=== PATIENT | female | born 1940 | race Caucasian/White ===

== ENCOUNTER 2018-11-30 20:04 | Emergency (ER) | payer MEDICARE ==
--- NOTE | 2018-11-30 20:28 | EDM.PDOC ---
ED HPI GENERAL MEDICAL PROBLEM - General Chief Complaint: Upper Extremity Injury/Pain Stated Complaint: FALL Time Seen by Provider: 11/30/18 20:10 Source of Information: Reports: Patient, Other (caregivers) History Limitations: Reports: Altered Mental Status (advanced dementia) - History of Present Illness INITIAL COMMENTS - FREE TEXT/NARRATIVE: Patient was walking up the street and her was following her in a golf cart. She was confused and started to run away from him and fell forward. With her dementia she can't tell me much but she denies pain with all elements of the exam except the left arm, that hurts. Treatments [employer] INTERN: Reports: IV/IO, Splint(s) - Related Data Allergies Allergy/AdvReac Type Severity Reaction Status Date / Time No Known Drug Allergies Allergy Cannot Verified 11/30/18 20:20 Remember Review of Systems - Review of Systems Review Of Systems: Unable To Obtain ED EXAM, GENERAL - Physical Exam Exam: See Below Exam Limited By: Altered Mental Status General Appearance: Alert, WD/WN, No Apparent Distress Eye Exam: Bilateral Eye: EOMI, Normal Inspection, PERRL Ears: Normal External Exam, Hearing Grossly Normal Nose: Normal Inspection, No Blood, Other (two small abrasions on the nose). No : Nasal Deformity Throat/Mouth: Normal Inspection, Normal Lips, Normal Voice, No Airway Compromise Head: Normocephalic Neck: Normal Inspection, Supple, Non-Tender, Full Range of Motion. No: Tender Lateral, Tender Midline Respiratory/Chest: No Respiratory Distress, Lungs Clear, Normal Breath Sounds, No Accessory Muscle Use, Chest Non-Tender Cardiovascular: Normal Peripheral Pulses, Regular Rate, Rhythm, No Murmur Peripheral Pulses: 2+: Radial (L), Radial (R) GI/Abdominal: Normal Bowel Sounds, Soft, Non-Tender, No Organomegaly, No Distention Back Exam: Normal Inspection. No: Paraspinal Tenderness, Vertebral Tenderness Extremities: Normal Capillary Refill, Other (left humerus has obvious fracture; closed with skin intact.) Neurological: Alert, No Motor/Sensory Deficits, Memory Loss Remote Events, Memory Loss Recent Events Psychiatric: Normal Affect, Normal Mood Skin Exam: Warm, Dry, Intact, Normal Color, No Rash Course - Vital Signs Last Recorded V/S: Last Vital Signs Temp 98.1 F 11/30/18 20:17 Pulse 78 11/30/18 20:17 Resp 16 11/30/18 20:17 BP 166/69 H 11/30/18 20:17 Pulse Ox 93 L 11/30/18 20:17 - Re-Assessments/Exams Free Text/Narrative Re-Assessment/Exam: 11/30/18 20:43 Xrays confirm mid-shaft left humerus spiral fracture that is completely displaced. I called [facility] and am waiting for call back after Ortho, Dr. Chinchilla looks at images. 11/30/18 21:[address] Chinchilla, Ortho who accepted for treatment but will consult in the morning and wants IM to admit. Discussed with Dr. Menezes, IM who accepted at 8:56 pm, but we have to wait for call with room before we can begin transport. Ambulance crew is still here from bringing her and ready to leave with her to [place] but will hold for now. Patient is stable and declines offer of pain medicine at this time. Departure - Departure Time of Disposition: 21:18 Disposition: DC/Tfer to Acute Hospital 02 Condition: Good Clinical Impression: Humerus shaft fracture Qualifiers: Encounter type: initial encounter Fracture type: closed Fracture morphology: spiral Fracture alignment: displaced Laterality: left Qualified Code(s): S42.342A - Displaced spiral fracture of shaft of humerus, left arm, initial encounter for closed fracture - Discharge Information Referrals: Justin Christine PA-C [Primary Care Provider] -
--- NOTE | 2018-11-30 20:44 | CR ---
[id number] RAD/RAD Humerus Left 2V EXAM: LEFT HUMERUS 2 VIEWS INDICATION: FRACTURE COMPARISON: None. DISCUSSION: There is an acute spiral fracture of the humerus with significant posterior displacement and posterior and medial angulation of the main distal fracture segment. Moderate acromioclavicular osteoarthritis. No dislocation. Osteopenia. IMPRESSION: 1. Acute significantly displaced and angulated humeral shaft fracture. Albaro Alcantar MD 11/30/18 2042 Thank you for allowing us to participate in the care of your patient.
== END 2018-11-30 22:55 ==
LOC: KA.ED 20:04
DX: S42.342A Displaced spiral fracture of shaft of humerus, left arm, initial encounter for closed fracture (principal); S00.31XA Abrasion of nose, initial encounter; W19.XXXA Unspecified fall, initial encounter; Y93.02 Activity, running
CPT/HCPCS: 73060-LT; 99285-25

== ENCOUNTER 2019-10-27 10:10 | Emergency (ER) | payer MEDICARE ==
[2019-10-27] MEDS ORDERED: Sodium Chloride 0.9% 10 ML Syringe FLUSH PRN (10:17)
--- NOTE | 2019-10-27 10:41 | EDM.PDOC ---
ED HPI GENERAL MEDICAL PROBLEM - General Chief Complaint: Neurological Problem Stated Complaint: ? SEIZURE Time Seen by Provider: 10/27/19 10:16 Source of Information: Reports: EMS, EMS Notes Reviewed, [facility] Records History Limitations: Reports: Altered Mental Status - History of Present Illness INITIAL COMMENTS - FREE TEXT/NARRATIVE: Patient is an 79-year-old female who presents to the emergency department this morning via EMS with complaint of altered mental status. Per [facility] notes, at approximately 0850 this morning, patient was being dressed and patient started shaking and passed out. This is said to have last 15-30 seconds. Patient spontaneously opened eyes, but was confused. Patient does have baseline dementia. However, this is a change from her normal per nursing staff. Per nursing notes there has been no change in medication, recent fever, or change in behavior. Patient does not answer questions appropriately at this time, so unable to obtain further information. Onset: Today Onset Time: 08:50 Duration: Minutes: Severity: Mild Improves with: Reports: Other (Spontaneously) Worsens with: Reports: None Associated Symptoms: Reports: Confusion - Related Data Allergies Allergy/AdvReac Type Severity Reaction Status Date / Time No Known Drug Allergies Allergy Cannot Verified 10/27/19 10:53 Remember Home Meds: Home Meds Acetaminophen [Tylenol] 650 mg PO ASDIRECTED PRN 10/27/19 [History] Acetaminophen [Tylenol] 650 mg PO BID 10/27/19 [History] Amino Ac/Protein Hydr/Whey Pro [Liquacel Liquid Protein Packet] 30 ml PO BID 10/27/19 [History] Loperamide HCl [Imodium A-D] 2 mg PO ASDIRECTED PRN 10/27/19 [History] Magnesium Hydroxide [Milk of Magnesia] 30 ml PO DAILY PRN 10/27/19 [History] Melatonin 5 mg PO BEDTIME 10/27/19 [History] Menthol/Zinc Oxide [Calmoseptine] 1 applic TOP TID 10/27/19 [History] bisacodyL [Dulcolax] 10 mg RECTAL DAILY PRN 10/27/19 [History] polyethylene glycoL 3350 [MiraLAX] 17 gm PO DAILY 10/27/19 [History] ED ROS GENERAL - Review of Systems Review Of Systems: Comprehensive ROS is negative, except as noted in HPI. Constitutional: Reports: No Symptoms HEENT: Reports: No Symptoms Respiratory: Reports: No Symptoms Cardiovascular: Reports: No Symptoms Endocrine: Reports: No Symptoms GI/Abdominal: Reports: No Symptoms : Reports: No Symptoms Musculoskeletal: Reports: No Symptoms Skin: Reports: No Symptoms Neurological: Reports: Confusion, Pre-Existing Deficit (Underlying dementia), Seizure (Suspected) Psychiatric: Reports: No Symptoms Hematologic/Lymphatic: Reports: No Symptoms Immunologic: Reports: No Symptoms - Physical Exam Exam: See Below Exam Limited By: No Limitations General Appearance: Alert, WD/WN, No Apparent Distress Eye Exam: Bilateral Eye: Normal Inspection Nose: Normal Inspection, Normal Mucosa, No Blood Throat/Mouth: Normal Inspection, Normal Oropharynx, No Airway Compromise Head Exam: Atraumatic, Normocephalic Neck: Normal Inspection Respiratory/Chest: No Respiratory Distress, Lungs Clear, Normal Breath Sounds, No Accessory Muscle Use, Chest Non-Tender Cardiovascular: Regular Rate, Rhythm, No Murmur GI/Abdominal: Normal Bowel Sounds, Soft, Non-Tender, No Organomegaly, No Distention, No Abnormal Bruit, No Mass, Pelvis Stable Neuro Exam (Abbreviated): Confused, Disoriented, Slow to Respond Back Exam: Normal Inspection Extremities: Normal Inspection, No Pedal Edema Psychiatric: Normal Affect, Normal Mood Skin Exam: Warm, Dry, Intact, Normal Color, No Rash EKG INTERPRETATION EKG Date: 10/27/19 Time: 11:00 Rhythm: Other (Sinus rhythm with PVCs) Rate (Beats/Min): 89 [place]: Normal P-Wave: Present QRS: Normal ST-T: Normal QT: Normal Comparison: NA - No Prior EKG Course - Vital Signs Last Recorded V/S: Last Vital Signs Temp 97.5 F 10/27/19 11:10 Pulse 93 10/27/19 11:10 Resp 13 10/27/19 11:10 BP 164/91 H 10/27/19 11:10 Pulse Ox 88 L 10/27/19 11:10 - Orders/Labs/Meds Orders: Active Orders 24 hr Category Date Time Status EKG Documentation Completion [RC] ASDIRECTED Care 10/27/19 10:18 Active Peripheral IV Care [RC] . DIRECTED Care 10/27/19 10:18 Active CULTURE URINE [RM] Stat Lab 10/27/19 10:45 Received Sodium Chloride 0.9% [Saline Flush] Med 10/27/19 10:17 Active 10 ml FLUSH Q8HR PRN Peripheral IV Insertion Adult [OM.PC] Routine Oth 10/27/19 10:17 Ordered EKG 12 Lead [EK] Stat Ther 10/27/19 10:17 Ordered Medication Orders Sodium Chloride (Saline Flush) 10 ml FLUSH Q8HR PRN PRN Reason: keep vein open Labs: Laboratory Tests 10/27/19 10/27/19 10/27/19 Range/Units 10:32 10:32 10:32 WBC 8.61 (5.00-10.00) 10^3/uL RBC 4.09 (3.80-5.50) 10^6/uL Hgb 12.4 (12.0-16.0) g/dL Hct 37.2 (37.0-47.0) % MCV 91.0 (82.0-92.0) fL MCH 30.3 (27.0-31.0) pg MCHC 33.3 (32.0-36.0) g/dL RDW 13.9 (11.5-14.5) % Plt Count 189 (150-400) 10^3/uL MPV 9.6 (7.4-10.4) fL Immature Gran % (Auto) 0.9 (0.0-5.0) % Neut % (Auto) 76.6 H (50.0-70.0) % Lymph % (Auto) 16.7 L (20.0-40.0) % [place] % (Auto) 4.8 (2.0-8.0) % Eos % (Auto) 0.8 L (1.0-3.0) % Baso % (Auto) 0.2 (0.0-1.0) % Neut # (Auto) 6.59 (2.50-7.00) 10^3/uL Lymph # (Auto) 1.44 (1.00-4.00) 10^3/uL [place] # (Auto) 0.41 (0.10-0.80) 10^3/uL Eos # (Auto) 0.07 L (0.10-0.30) 10^3/uL Baso # (Auto) 0.02 (0.00-0.10) 10^3/uL Immature Gran # (Auto) 0.08 (0.00-0.50) 10^3/uL PT 9.6 (9.2-11.2) SEC INR 0.9 (0.9-1.1) APTT 21.1 L (22.8-31.4) SEC Sodium 145 (136-145) mmol/L Potassium 3.5 (3.3-5.3) mmol/L Chloride 104 (98-115) mmol/L Carbon Dioxide 30.5 (21.0-32.0) mmol/L Anion Gap 14.0 (5-15) mmol/L BUN 26 H (6-25) mg/dL Creatinine 0.53 (0.51-1.17) mg/dL Est Cr Clr Drug Dosing TNP Estimated GFR (MDRD) > 60 mL/min Glucose 108 H (75 - 99) mg/dL Calcium 9.5 (8.7-10.3) mg/dL Total Bilirubin 0.5 (0.2-1.0) mg/dL AST 20 (15-37) U/L ALT 16 (12-78) U/L Alkaline Phosphatase 80 (46-116) IU/L Total Protein 7.8 (6.4-8.2) g/dL Albumin 3.63 (3.00-4.80) g/dL Specimen Type Urine Color (YELLOW) Urine Appearance (CLEAR) Urine pH (5.0-9.0) Ur Specific [place] (1.005-1.030) Urine Protein (NEGATIVE) mg/dL Urine Glucose (UA) (NEGATIVE) mg/dL Urine Ketones (NEGATIVE) mg/dL Urine Occult Blood (NEGATIVE) Urine Nitrite (NEGATIVE) Urine Bilirubin (NEGATIVE) Urine Urobilinogen (0.2-1.0) E.U./dL Ur Leukocyte Esterase (NEGATIVE) Urine RBC (0-5) /HPF Urine WBC (0-5) /HPF Ur Epithelial Cells /LPF Urine Bacteria (NONE TO FEW) /HPF Urine Mucus (NEGATIVE) /LPF 10/27/19 Range/Units 10:45 WBC (5.00-10.00) 10^3/uL RBC (3.80-5.50) 10^6/uL Hgb (12.0-16.0) g/dL Hct (37.0-47.0) % MCV (82.0-92.0) fL MCH (27.0-31.0) pg MCHC (32.0-36.0) g/dL RDW (11.5-14.5) % Plt Count (150-400) 10^3/uL MPV (7.4-10.4) fL Immature Gran % (Auto) (0.0-5.0) % Neut % (Auto) (50.0-70.0) % Lymph % (Auto) (20.0-40.0) % [place] % (Auto) (2.0-8.0) % Eos % (Auto) (1.0-3.0) % Baso % (Auto) (0.0-1.0) % Neut # (Auto) (2.50-7.00) 10^3/uL Lymph # (Auto) (1.00-4.00) 10^3/uL [place] # (Auto) (0.10-0.80) 10^3/uL Eos # (Auto) (0.10-0.30) 10^3/uL Baso # (Auto) (0.00-0.10) 10^3/uL Immature Gran # (Auto) (0.00-0.50) 10^3/uL PT (9.2-11.2) SEC INR (0.9-1.1) APTT (22.8-31.4) SEC Sodium (136-145) mmol/L Potassium (3.3-5.3) mmol/L Chloride (98-115) mmol/L Carbon Dioxide (21.0-32.0) mmol/L Anion Gap (5-15) mmol/L BUN (6-25) mg/dL Creatinine (0.51-1.17) mg/dL Est Cr Clr Drug Dosing Estimated GFR (MDRD) mL/min Glucose (75 - 99) mg/dL Calcium (8.7-10.3) mg/dL Total Bilirubin (0.2-1.0) mg/dL AST (15-37) U/L ALT (12-78) U/L Alkaline Phosphatase (46-116) IU/L Total Protein (6.4-8.2) g/dL Albumin (3.00-4.80) g/dL Specimen Type [place] Urine Color Yellow (YELLOW) Urine Appearance Clear (CLEAR) Urine pH 6.0 (5.0-9.0) Ur Specific [place] >= 1.030 (1.005-1.030) Urine Protein 100 H (NEGATIVE) mg/dL Urine Glucose (UA) Negative (NEGATIVE) mg/dL Urine Ketones Negative (NEGATIVE) mg/dL Urine Occult Blood Small H (NEGATIVE) Urine Nitrite Negative (NEGATIVE) Urine Bilirubin Negative (NEGATIVE) Urine Urobilinogen 2.0 H (0.2-1.0) E.U./dL Ur Leukocyte Esterase Negative (NEGATIVE) Urine RBC 5-10 H (0-5) /HPF Urine WBC 5-10 H (0-5) /HPF Ur Epithelial Cells Moderate H /LPF Urine Bacteria Few (NONE TO FEW) /HPF Urine Mucus Many H (NEGATIVE) /LPF Meds: Medications Generic Name Dose Route Start Last Admin Trade Name Freq PRN Reason Stop Dose Admin Sodium Chloride 10 ml 10/27/19 10:17 Saline Flush FLUSH Q8HR PRN keep vein open - Radiology Interpretation Free Text/Narrative:: CT head without contrast shows no acute intracranial process - Re-Assessments/Exams Free Text/Narrative Re-Assessment/Exam: 10/27/19 11:46 Patient afebrile, vital signs stable, no change in condition. Discussed case with Alirio Jenkins provider. Patient will be return to nursing facility and followed Departure - Departure Time of Disposition: 11:51 Disposition: DC/Tfer to SNF 03 Condition: Good Clinical Impression: Dementia Qualifiers: Dementia type: unspecified type Dementia behavioral disturbance: without b ehavioral disturbance Qualified Code(s): F03.90 - Unspecified dementia without behavioral disturbance - Discharge Information Instructions: Dementia, [id number] Referrals: Cheyenne Oh MD [Primary Care Provider] - Forms: ED Department Discharge Sepsis Event Note (ED) - Focused Exam Vital Signs: Vital Signs Temp Pulse Resp BP Pulse Ox 10/27/19 11:10 97.5 F 93 13 164/91 H 88 L - My Orders Last 24 Hours: My Active Orders 10/27/19 10:17 Sodium Chloride 0.9% [Saline Flush] 10 ml FLUSH Q8HR PRN Peripheral IV Insertion Adult [OM.PC] Routine EKG 12 Lead [EK] Stat 10/27/19 10:18 EKG Documentation Completion [RC] ASDIRECTED Peripheral IV Care [RC] . DIRECTED 10/27/19 10:45 CULTURE URINE [RM] Stat - Assessment/Plan Last 24 Hours: My Active Orders 10/27/19 10:17 Sodium Chloride 0.9% [Saline Flush] 10 ml FLUSH Q8HR PRN Peripheral IV Insertion Adult [OM.PC] Routine EKG 12 Lead [EK] Stat 10/27/19 10:18 EKG Documentation Completion [RC] ASDIRECTED Peripheral IV Care [RC] . DIRECTED 10/27/19 10:45 CULTURE URINE [RM] Stat Assessment:: Dementia Plan: Return to nursing facility
[2019-10-27 11:05] LABS: CHLORIDE,CL 104 mmol/L (98-115); SODIUM,NA 145 mmol/L (136-145)
[2019-10-27 11:14] LABS: PTT,PARTIAL THROMBOPLSTIN TIME 21.1 SEC (22.8-31.4)
--- NOTE | 2019-10-27 11:30 | CT ---
[id number] CT/CT Head WO IV EXAM: NONCONTRAST HEAD CT INDICATION: AMS. COMPARISON: None. DISCUSSION: There is moderate generalized atrophy. Moderate multifocal white matter hypoattenuation is nonspecific, but generally ascribed to chronic small vessel ischemia. No mass effect or midline shift. No acute hemorrhage or extra-axial fluid collection. No acute territorial infarct is identified. Mild paranasal sinus mucosal thickening. Mucosal retention cysts left maxillary and sphenoid sinuses. IMPRESSION: 1. No acute findings. 2. Moderate generalized atrophy and chronic small vessel ischemic changes. Albaro Alcantar MD 10/27/19 1121 Thank you for allowing us to participate in the care of your patient.
== END 2019-10-27 14:10 ==
LOC: KA.ED 10:10
DX: F03.90 Unspecified dementia, unspecified severity, without behavioral disturbance, psychotic disturbance, mood disturbance, and anxiety (principal); I49.3 Ventricular premature depolarization
CPT/HCPCS: 36415; 70450; 80053; 81001; 85025; 85610; 85730; 87086; 93005; 99283; 99285-25